=== PATIENT | female | born 1985 | race Hispanic/Latino ===

== ENCOUNTER 2022-12-20 13:39 | Emergency (ER) | payer MEDICAID ==
[~2022-12-20] VITALS: Ht 165.1 cm; Wt 117.9 kg
[2022-12-20] MEDS ORDERED: DEXAMETHASONE SOD PHOSPHATE 4 MG/ML 1ML VIAL IM ONE (14:00)
[2022-12-20] MEDS ORDERED: CELECOXIB 100 MG CAP PO SCH (14:00)
[2022-12-20 14:09] VITALS: BP 121/78
[2022-12-20 15:01] LABS: BASOPHILS % (AUTO) 0.6 % (0.0-5.0); EOSINOPHILS % (AUTO) 1.5 % (0.0-8.0); HEMATOCRIT 39.7 % (36-48); LYMPHOCYTES % (AUTO) 24.8 % (21.0-51.0); MEAN CORPUSCULAR HEMOGLOBIN 26.4 pg (27.0-33.0); MEAN CORPUSCULAR HGB CONC 32.2 g/dL (32.0-36.0); MONOCYTES % (AUTO) 5.6 % (3.0-13.0); NEUTROPHILS % (AUTO) 67.1 % (40.0-77.0); PLATELET COUNT (AUTO) 300 K/uL (130-400); RED BLOOD CELL COUNT(AUTO) 4.84 MIL/uL (4.00-5.50); RED CELL DISTRIBUTION WIDTH 13.4 % (11.0-15.5); WHITE BLOOD COUNT (AUTO) 9.3 K/uL (4.8-10.8)
[2022-12-20 16:06] LABS: ALBUMIN 3.5 g/dL (3.5-5.0); CREATININE 0.9 mg/dL (0.5-1.5); POTASSIUM 3.2 mmol/L (3.5-5.1); TOTAL PROTEIN, SERUM 8.1 g/dL (6.0-8.3)
[2022-12-20] MEDS ORDERED: CELE100C PO (16:18)
== END 2022-12-20 16:23 | disposition home or self-care (01) ==
LOC: EDH 13:39
DX: R51.9 Headache, unspecified (principal); M54.81 Occipital neuralgia; Z98.890 Other specified postprocedural states
CPT/HCPCS: 99285; 70450; 80053; 85025; 81025; 36415; 96372; J1100

== ENCOUNTER 2023-08-21 20:18 | Inpatient (IN) | payer MEDICAID, OTHER ==
[~2023-08-21] VITALS: Ht 165.1 cm; Wt 133.0 kg
[~2023-08-21 20:18] MED LIST: AMOX1TAB16 PO; CELE100C PO; CETI10TA57 PO; DEXA6TAB PO; FLUT1BLS3 IH; SERT-440 PO
[2023-08-21 20:55] LABS: WHITE BLOOD COUNT (AUTO) 4.7 K/uL (4.8-10.8)
[2023-08-21 20:56] LABS: BASOPHILS # (AUTO) 0.02 K/uL (0.00-0.20); BASOPHILS % (AUTO) 0.4 % (0.0-5.0); EOSINOPHILS # (AUTO) 0.08 K/uL (0.00-0.70); EOSINOPHILS % (AUTO) 1.7 % (0.0-8.0); HEMATOCRIT 37.7 % (36-48); IMMATURE GRANULOCYTE ABSOLUTE 0.03 K/uL (0-1); LYMPHOCYTES % (AUTO) 21.4 % (21.0-51.0); MEAN CORPUSCULAR HEMOGLOBIN 26.9 pg (27.0-33.0); MEAN CORPUSCULAR HGB CONC 32.9 g/dL (32.0-36.0); MEAN CORPUSCULAR VOLUME 81.8 fL (79-99); MONOCYTES # (AUTO) 0.4 K/uL (0.1-1.0); MONOCYTES % (AUTO) 9.4 % (3.0-13.0); NEUTROPHILS # (AUTO) 3.1 K/uL (1.8-7.7); NEUTROPHILS % (AUTO) 66.5 % (40.0-77.0); PLATELET COUNT (AUTO) 241 K/uL (130-400); RED BLOOD CELL COUNT(AUTO) 4.61 MIL/uL (4.00-5.50); RED CELL DISTRIBUTION WIDTH 13.7 % (11.0-15.5)
[2023-08-21 21:10] LABS: CREATININE 0.8 mg/dL (0.5-1.5); POTASSIUM 3.7 mmol/L (3.5-5.1)
[2023-08-21 21:14] LABS: ALBUMIN 3.3 g/dL (3.5-5.0); BILIRUBIN,TOTAL 0.2 mg/dL (0.2-1.0); TOTAL PROTEIN, SERUM 7.8 g/dL (6.0-8.3)
[2023-08-21 21:20] LABS: SARS-CoV-2, RNA, NAAT NEGATIVE SARS CoV-2 (NEGATIVE)
[2023-08-21 21:21] LABS: B-TYPE NATRIURETIC PEPTIDE 5 pg/mL (0-100)
[2023-08-21 21:23] LABS: INFLUENZA TYPE B Negative For Type B (NEGATIVE)
[2023-08-21] MEDS ORDERED: GUAIFENESIN 600 MG TABLET.ER PO ONE (21:30)
[2023-08-21] MEDS ORDERED: ALBUTEROL 0.083% 2.5 MG/3 ML INH IH ONE ×3 (21:30)
[2023-08-21] MEDS ORDERED: ENOXAPARIN SODIUM 120 MG/0.8ML SQ ONE (21:30)
[2023-08-21] MEDS ORDERED: DEXAMETHASONE SOD PHOSPHATE 4 MG/ML 1ML VIAL IV ONE (21:30)
[2023-08-21] MEDS ORDERED: SOLU-MEDROL 125MG VIAL IVP ONE (21:30)
[2023-08-21 21:34] VITALS: PULSE 108; RESP 20
[2023-08-21 21:36] LABS: INFLUENZA TYPE A Positive For Type A (NEGATIVE)
[2023-08-21] MEDS: 0.9%NACL 1000ML 1,000 ML IV SCH ×2 (21:36)
[2023-08-21 21:44] LABS: APPEARANCE,URINE CLOUDY (CLEAR); BILIRUBIN,URINE NEGATIVE (NEGATIVE); COLOR,URINE LIGHT-ORANGE (YELLOW); GLUCOSE, URINE (UA) NEGATIVE (NEGATIVE); KETONES,URINE NEGATIVE (NEGATIVE); LEUKOCYTE ESTERASE ,URINE 500 Leu/uL (NEGATIVE); NITRATE,URINE NEGATIVE (NEGATIVE); OCCULT BLOOD,URINE LARGE (NEGATIVE); PROTEIN,URINE 20 mg/dL (NEGATIVE); UROBILINOGEN,URINE 0.2 mg/dL (0.2-1.0)
[2023-08-21 21:48] LABS: ADD UA MICROSCOPIC YES
[2023-08-21 21:49] VITALS: PULSE 119; RESP 20
[2023-08-21 21:54] LABS: BACTERIA,URINE RARE /HPF (None Seen); MUCUS,URINE RARE LPF (None Seen); RBC,URINE >100 /HPF (0-1); SQUAMOUS EPITHELIAL CELL,UR MOD /HPF (0-2); UNCLASSIFIED CRYSTAL 4 /HPF (None Seen); WBC,URINE 26-50 /HPF (0-1)
[2023-08-21 21:55] VITALS: PULSE 122; RESP 20
[2023-08-21] MEDS ORDERED: CEFTRIAXONE 2GM VIAL IVPB ONE (23:30)
[2023-08-22] VITALS (14 sets, daily range): BP systolic 107–133; BP diastolic 63–74; PULSE 72–118; RESP 18–24; O2SAT 95–100
[2023-08-22] MEDS ORDERED: ONDANSETRON 4MG INJ IV PRN (00:30)
[2023-08-22] MEDS ORDERED: CEFTRIAXONE 1G VIAL IVPB SCH (00:30)
[2023-08-22] MEDS: IPRATROPIUM/ALBUTEROL SULFATE 3 ML SOLUTION IH SCH ×6 (01:47→23:24)
[2023-08-22] MEDS ORDERED: IOHEXOL 350 MG/ML 100ML INFUS..BTL IV ONE (03:40)
[2023-08-22 04:00] LABS: BASOPHILS # (AUTO) 0.01 K/uL (0.00-0.20); BASOPHILS % (AUTO) 0.2 % (0.0-5.0); EOSINOPHILS # (AUTO) 0.01 K/uL (0.00-0.70); EOSINOPHILS % (AUTO) 0.2 % (0.0-8.0); HEMATOCRIT 36.2 % (36-48); IMMATURE GRANULOCYTE ABSOLUTE 0.02 K/uL (0-1); LYMPHOCYTES # (AUTO) 0.4 K/uL (1.0-4.8); LYMPHOCYTES % (AUTO) 10.9 % (21.0-51.0); MEAN CORPUSCULAR HEMOGLOBIN 26.7 pg (27.0-33.0); MEAN CORPUSCULAR HGB CONC 31.8 g/dL (32.0-36.0); MEAN CORPUSCULAR VOLUME 84.2 fL (79-99); MONOCYTES # (AUTO) 0.1 K/uL (0.1-1.0); MONOCYTES % (AUTO) 1.7 % (3.0-13.0); NEUTROPHILS # (AUTO) 3.5 K/uL (1.8-7.7); NEUTROPHILS % (AUTO) 86.5 % (40.0-77.0); PLATELET COUNT (AUTO) 227 K/uL (130-400); RED CELL DISTRIBUTION WIDTH 13.8 % (11.0-15.5)
[2023-08-22 04:23] LABS: ALBUMIN 3.2 g/dL (3.5-5.0); BILIRUBIN,TOTAL 0.1 mg/dL (0.2-1.0); MAGNESIUM 1.6 mg/dL (1.80-2.40); POTASSIUM 3.4 mmol/L (3.5-5.1); TOTAL PROTEIN, SERUM 7.2 g/dL (6.0-8.3)
[2023-08-22 05:22] LABS: ABG BASE EXCESS -6.1 mmol/L (-2.0-3.0); ABG HCO3 18.6 mmol/L (21.0-28.0); ABG OXYGEN SATURATION 98.8 % (95.0-99.0); ABG PCO2 35 mmHg (32-45); ABG PH 7.349 (7.350-7.450); DEVICE COMMENT RR RN RAY; PO2, ARTERIAL BG 145.4 mmHg (83.0-108.0); VENT MODE, BG NC (ROOM AIR)
[2023-08-22] MEDS: DOXYCYCLINE 100MG+NS 250ML 250 ML IV SCH ×2 (05:27→16:50)
[2023-08-22] MEDS ORDERED: KCL 20 MEQ ERTAB PO PRN (05:30)
[2023-08-22] MEDS ORDERED: 0.9% NACL 500ML IV.SOLN 500 ML IV SCH (05:30)
[2023-08-22] MEDS ORDERED: MAGNESIUM 2GM PREMIX 50ML 50 ML IV PRN (05:30)
[2023-08-22] MEDS ORDERED: POTASSIUM CHLORIDE 20MEQ/100ML 100 ML IV PRN (05:30)
[2023-08-22] MEDS ORDERED: POTASSIUM CHLORIDE 10% ELIXIR 20 MEQ/15 ML UDCUP PO PRN (05:30)
[2023-08-22] MEDS ORDERED: MAGNESIUM 2GM PREMIX 50ML 50 ML IV SCH (08:30)
[2023-08-22] MEDS: FAMOTIDINE 20MG TAB PO SCH ×2 (08:36→20:26)
[2023-08-22] MEDS: OSELTAMIVIR PHOSPHATE 75 MG CAP PO SCH ×2 (08:36→20:26)
[2023-08-22] MEDS: 0.9%NACL 1000ML 1,000 ML IV SCH ×4 (08:37→19:20)
[2023-08-22] MEDS: ENOXAPARIN SODIUM 40 MG/0.4 ML SYRINGE SQ SCH (08:37)
[2023-08-22] MEDS ORDERED: KCL 20 MEQ ERTAB PO ONE (09:00)
[2023-08-22] MEDS ORDERED: SOLU-MEDROL 40MG VIAL IVP SCH (09:00)
[2023-08-22 09:59] LABS: HEMOGLOBIN A1C 5.2 % (4.0-6.0)
[2023-08-22] MEDS: INSULIN HUMULIN R 100 UNIT/ML 3ML SQ SCH ×3 (11:30→20:27)
[2023-08-22] MEDS: SODIUM BICARBONATE 650 MG TAB PO SCH ×3 (14:48→20:26)
[2023-08-22] MEDS: GUAIFENESIN-DM 200/20 MG 10 ML PO PRN ×2 (14:48→21:57)
[2023-08-22] MEDS: BENZOCAINE/MENTH/CETYLPYRD CL 1 EACH LOZENGE MM PRN ×2 (16:50→21:57)
[2023-08-22 17:02] LABS: RAPID GROUP A STREP negative (NEGATIVE)
[2023-08-22] MEDS: SERTRALINE HCL 50 MG TABLET PO SCH (20:26)
[2023-08-22] MEDS: ACETAMINOPHEN 325 MG TAB PO PRN (21:58)
[2023-08-23] VITALS (15 sets, daily range): BP systolic 100–127; BP diastolic 45–67; PULSE 70–98; RESP 18–24; O2SAT 96–99
[2023-08-23] MEDS: 0.9%NACL 1000ML 1,000 ML IV SCH ×3 (00:37→16:40)
[2023-08-23] MEDS: CEFTRIAXONE 1G VIAL IVPB SCH ×2 (00:37→23:39)
[2023-08-23] MEDS: IPRATROPIUM/ALBUTEROL SULFATE 3 ML SOLUTION IH SCH ×6 (01:46→21:15)
[2023-08-23 04:44] LABS: HEMATOCRIT 36.8 % (36-48); MEAN CORPUSCULAR HEMOGLOBIN 27.4 pg (27.0-33.0); MEAN CORPUSCULAR HGB CONC 32.3 g/dL (32.0-36.0); MEAN CORPUSCULAR VOLUME 84.8 fL (79-99); RED BLOOD CELL COUNT(AUTO) 4.34 MIL/uL (4.00-5.50); RED CELL DISTRIBUTION WIDTH 13.8 % (11.0-15.5); WHITE BLOOD COUNT (AUTO) 6.5 K/uL (4.8-10.8)
[2023-08-23 05:10] LABS: ALBUMIN 3.1 g/dL (3.5-5.0); BILIRUBIN,TOTAL 0.1 mg/dL (0.2-1.0); MAGNESIUM 2.1 mg/dL (1.80-2.40); POTASSIUM 4.6 mmol/L (3.5-5.1); TOTAL PROTEIN, SERUM 7.6 g/dL (6.0-8.3)
[2023-08-23] MEDS: DOXYCYCLINE 100MG+NS 250ML 250 ML IV SCH ×2 (05:28→16:40)
[2023-08-23] MEDS: ACETAMINOPHEN 325 MG TAB PO PRN ×3 (05:51→20:28)
[2023-08-23] MEDS: INSULIN HUMULIN R 100 UNIT/ML 3ML SQ SCH ×4 (06:12→20:29)
[2023-08-23] MEDS: (Fluticasone/Umeclidin/Vilanter (Trelegy Ellipta 100-62.5- IH SCH (09:00)
[2023-08-23] MEDS: ENOXAPARIN SODIUM 40 MG/0.4 ML SYRINGE SQ SCH (09:23)
[2023-08-23] MEDS: SERTRALINE HCL 50 MG TABLET PO SCH ×2 (09:23→20:27)
[2023-08-23] MEDS: SODIUM BICARBONATE 650 MG TAB PO SCH (09:23)
[2023-08-23] MEDS: FAMOTIDINE 20MG TAB PO SCH ×2 (09:23→20:28)
[2023-08-23] MEDS: OSELTAMIVIR PHOSPHATE 75 MG CAP PO SCH ×2 (09:23→20:27)
[2023-08-23] MEDS: GUAIFENESIN-DM 200/20 MG 10 ML PO PRN ×3 (09:32→20:27)
[2023-08-23] MEDS: BENZOCAINE/MENTH/CETYLPYRD CL 1 EACH LOZENGE MM PRN (20:28)
[2023-08-23] MEDS ORDERED: KETOROLAC 15MG/ML VIAL (15MG/ML) ONE (23:36)
[2023-08-24] VITALS (19 sets, daily range): BP systolic 110–144; BP diastolic 55–78; PULSE 67–144; RESP 18–26; O2SAT 87–99
[2023-08-24] MEDS: 0.9%NACL 1000ML 1,000 ML IV SCH ×2 (02:13→22:52)
[2023-08-24] MEDS: IPRATROPIUM/ALBUTEROL SULFATE 3 ML SOLUTION IH SCH ×6 (02:20→22:58)
[2023-08-24] MEDS: DOXYCYCLINE 100MG+NS 250ML 250 ML IV SCH ×2 (03:40→17:54)
[2023-08-24] MEDS: BENZOCAINE/MENTH/CETYLPYRD CL 1 EACH LOZENGE MM PRN ×2 (03:40→20:47)
[2023-08-24] MEDS: GUAIFENESIN-DM 200/20 MG 10 ML PO PRN (03:40)
[2023-08-24] MEDS: INSULIN HUMULIN R 100 UNIT/ML 3ML SQ SCH ×4 (06:05→21:00)
[2023-08-24 06:21] LABS: HEMATOCRIT 35.4 % (36-48); MEAN CORPUSCULAR HEMOGLOBIN 26.6 pg (27.0-33.0); MEAN CORPUSCULAR HGB CONC 31.4 g/dL (32.0-36.0); MEAN CORPUSCULAR VOLUME 84.9 fL (79-99); RED BLOOD CELL COUNT(AUTO) 4.17 MIL/uL (4.00-5.50); RED CELL DISTRIBUTION WIDTH 14.1 % (11.0-15.5); WHITE BLOOD COUNT (AUTO) 4.5 K/uL (4.8-10.8)
[2023-08-24 06:30] LABS: ALBUMIN 2.9 g/dL (3.5-5.0); BILIRUBIN,TOTAL 0.2 mg/dL (0.2-1.0); CREATININE 0.9 mg/dL (0.5-1.5); MAGNESIUM 1.7 mg/dL (1.80-2.40); POTASSIUM 4.1 mmol/L (3.5-5.1); TOTAL PROTEIN, SERUM 6.8 g/dL (6.0-8.3)
[2023-08-24] MEDS: ENOXAPARIN SODIUM 40 MG/0.4 ML SYRINGE SQ SCH (08:24)
[2023-08-24] MEDS: OSELTAMIVIR PHOSPHATE 75 MG CAP PO SCH ×2 (08:24→20:44)
[2023-08-24] MEDS: FAMOTIDINE 20MG TAB PO SCH ×2 (08:25→20:44)
[2023-08-24] MEDS: KETOROLAC 15MG/ML VIAL (15MG/ML) IV PRN ×2 (08:25→21:53)
[2023-08-24] MEDS: SERTRALINE HCL 50 MG TABLET PO SCH ×2 (08:25→20:45)
[2023-08-24] MEDS: (Fluticasone/Umeclidin/Vilanter (Trelegy Ellipta 100-62.5- IH SCH (08:26)
[2023-08-25] VITALS (7 sets, daily range): BP systolic 106–124; BP diastolic 60–76; PULSE 72–90; RESP 18–20; O2SAT 96–98
[2023-08-25] MEDS: CEFTRIAXONE 1G VIAL IVPB SCH (00:33)
[2023-08-25] MEDS: IPRATROPIUM/ALBUTEROL SULFATE 3 ML SOLUTION IH SCH ×4 (02:28→14:50)
[2023-08-25] MEDS: DOXYCYCLINE 100MG+NS 250ML 250 ML IV SCH (05:08)
[2023-08-25 05:43] LABS: BASOPHILS # (AUTO) 0.03 K/uL (0.00-0.20); BASOPHILS % (AUTO) 0.5 % (0.0-5.0); EOSINOPHILS # (AUTO) 0.18 K/uL (0.00-0.70); EOSINOPHILS % (AUTO) 3.3 % (0.0-8.0); HEMATOCRIT 36.9 % (36-48); IMMATURE GRANULOCYTE ABSOLUTE 0.03 K/uL (0-1); LYMPHOCYTES # (AUTO) 2.3 K/uL (1.0-4.8); LYMPHOCYTES % (AUTO) 41.2 % (21.0-51.0); MEAN CORPUSCULAR HEMOGLOBIN 27.2 pg (27.0-33.0); MEAN CORPUSCULAR HGB CONC 31.7 g/dL (32.0-36.0); MEAN CORPUSCULAR VOLUME 85.8 fL (79-99); MONOCYTES # (AUTO) 0.5 K/uL (0.1-1.0); MONOCYTES % (AUTO) 8.2 % (3.0-13.0); NEUTROPHILS # (AUTO) 2.5 K/uL (1.8-7.7); NEUTROPHILS % (AUTO) 46.3 % (40.0-77.0); PLATELET COUNT (AUTO) 244 K/uL (130-400); RED CELL DISTRIBUTION WIDTH 13.7 % (11.0-15.5); WHITE BLOOD COUNT (AUTO) 5.5 K/uL (4.8-10.8)
[2023-08-25] MEDS: INSULIN HUMULIN R 100 UNIT/ML 3ML SQ SCH ×2 (05:48→11:30)
[2023-08-25 06:07] LABS: BAND NEUTROPHILS % (MANUAL) 1 % (0-2); EOSINOPHILS % (MANUAL) 3 % (1-6); LYMPHOCYTES % (MANUAL) 25 % (22-44); MONOCYTES % (MANUAL) 3 % (2-9); SEGMENTED NEUTROPHILS % 68 % (40-70); TOTAL CELLS COUNTED 100
[2023-08-25 06:08] LABS: MAN.DIFF COMMENT-IMPRESSION MANUAL DIFFERENTIAL; PLATELET MORPHOLOGY COMMENT ADEQUATE; WBC MORPHOLOGY CONSISTENT W/DIFF
[2023-08-25 06:17] LABS: BILIRUBIN,TOTAL 0.2 mg/dL (0.2-1.0); CREATININE 0.9 mg/dL (0.5-1.5); MAGNESIUM 2.1 mg/dL (1.80-2.40); POTASSIUM 3.9 mmol/L (3.5-5.1)
[2023-08-25] MEDS: (Fluticasone/Umeclidin/Vilanter (Trelegy Ellipta 100-62.5- IH SCH (09:00)
[2023-08-25] MEDS ORDERED: OSEL75 PO (09:44)
[2023-08-25] MEDS ORDERED: BENZ-39 PO (09:44)
[2023-08-25] MEDS: FAMOTIDINE 20MG TAB PO SCH (10:09)
[2023-08-25] MEDS: OSELTAMIVIR PHOSPHATE 75 MG CAP PO SCH (10:09)
[2023-08-25] MEDS: SERTRALINE HCL 50 MG TABLET PO SCH (10:09)
[2023-08-25] MEDS: ENOXAPARIN SODIUM 40 MG/0.4 ML SYRINGE SQ SCH (10:10)
[2023-08-25] MEDS: ACETAMINOPHEN 325 MG TAB PO PRN (12:33)
[2023-08-25] MEDS ORDERED: IPRA3AMP24 IH (14:46)
[2023-08-25] MEDS ORDERED: FLUT1BLS3 IH (14:46)
== END 2023-08-25 18:54 | disposition home or self-care (01) | DRG 871 ==
LOC: EDH 20:18 → EDHIP 08-22 00:15 → 2AH 08-22 01:57 → 3CH 08-23 12:30
PROVIDERS: ADMIT Internal Medicine; ATTEND Internal Medicine
DX: A41.9 Sepsis, unspecified organism (principal); J10.08 Influenza due to other identified influenza virus with other specified pneumonia; J96.21 Acute and chronic respiratory failure with hypoxia; J12.82 Pneumonia due to coronavirus disease 2019; N39.0 Urinary tract infection, site not specified; E87.20 Acidosis, unspecified; Z68.42 Body mass index [BMI] 45.0-49.9, adult; E66.01 Morbid (severe) obesity due to excess calories; Z20.822 Contact with and (suspected) exposure to COVID-19; E78.00 Pure hypercholesterolemia, unspecified; E87.6 Hypokalemia; G62.9 Polyneuropathy, unspecified; J45.909 Unspecified asthma, uncomplicated; F32.A Depression, unspecified; F41.9 Anxiety disorder, unspecified; Z99.81 Dependence on supplemental oxygen; Z79.899 Other long term (current) drug therapy; Z86.718 Personal history of other venous thrombosis and embolism; Z79.01 Long term (current) use of anticoagulants; Z86.16 Personal history of COVID-19
CPT/HCPCS: 36415; 36600; 71045; 71270; 80053; 80061; 81001; 82803; 82948; 83036; 83605; 83735; 83880; 84145; 84703; 85025; 85027; 85378; 87040; 87088; 87635; 87804; 87807; 87880; 94640; 94664; 94760; G0378; J0696; J1100; J1650; J1885; J2930; J3475; J3490; J7030; Q9967

== ENCOUNTER 2024-03-07 20:21 | Emergency (ER) | payer OTHER ==
[~2024-03-07] VITALS: Ht 165.1 cm; Wt 136.1 kg
[~2024-03-07 20:21] MED LIST changes: +ACET-66 PO; +ALBUHFA IH; -AMOX1TAB16 PO; +BENZ-39 PO; -CELE100C PO; -DEXA6TAB PO; +IBUP-1493 PO; +IPRA3AMP24 IH; +LORA-868 PO; +NIRM1TAB9 PO; +OSEL75 PO
[2024-03-07 21:02] LABS: BASOPHILS # (AUTO) 0.04 K/uL (0.00-0.20); BASOPHILS % (AUTO) 0.4 % (0.0-5.0); EOSINOPHILS # (AUTO) 0.18 K/uL (0.00-0.70); EOSINOPHILS % (AUTO) 1.7 % (0.0-8.0); IMMATURE GRANULOCYTE ABSOLUTE 0.04 K/uL (0-1); LYMPHOCYTES # (AUTO) 2.9 K/uL (1.0-4.8); LYMPHOCYTES % (AUTO) 27.6 % (21.0-51.0); MEAN CORPUSCULAR HEMOGLOBIN 27.3 pg (27.0-33.0); MEAN CORPUSCULAR HGB CONC 34.1 g/dL (32.0-36.0); MEAN CORPUSCULAR VOLUME 79.9 fL (79-99); MONOCYTES # (AUTO) 0.5 K/uL (0.1-1.0); MONOCYTES % (AUTO) 4.9 % (3.0-13.0); NEUTROPHILS # (AUTO) 6.8 K/uL (1.8-7.7); PLATELET COUNT (AUTO) 322 K/uL (130-400); RED BLOOD CELL COUNT(AUTO) 4.88 MIL/uL (4.00-5.50); RED CELL DISTRIBUTION WIDTH 13.2 % (11.0-15.5); WHITE BLOOD COUNT (AUTO) 10.4 K/uL (4.8-10.8)
[2024-03-07 21:13] LABS: MAGNESIUM 1.6 mg/dL (1.80-2.40); POTASSIUM 3.8 mmol/L (3.5-5.1)
[2024-03-07] MEDS: PROCHLORPERAZINE 10MG/2ML INJ IV ONE (21:49)
[2024-03-07] MEDS: DiphenhydrAMINE HCL 50 MG/ML VIAL IV ONE (21:49)
[2024-03-07] MEDS: 0.9%NACL 1000ML 1,000 ML IV ONE (21:49)
[2024-03-08 00:53] VITALS: BP 136/62; PULSE 92; RESP 20; O2SAT 95
[2024-03-08 01:11] LABS: APPEARANCE,URINE CLEAR (CLEAR); BILIRUBIN,URINE NEGATIVE (NEGATIVE); COLOR,URINE LIGHT-YELLOW (YELLOW); GLUCOSE, URINE (UA) NEGATIVE (NEGATIVE); KETONES,URINE NEGATIVE (NEGATIVE); LEUKOCYTE ESTERASE ,URINE NEGATIVE Leu/uL (NEGATIVE); NITRATE,URINE NEGATIVE (NEGATIVE); OCCULT BLOOD,URINE NEGATIVE (NEGATIVE); PH,URINE 5.5 (5.0-8.0); PROTEIN,URINE NEGATIVE (NEGATIVE); UROBILINOGEN,URINE 0.2 mg/dL (0.2-1.0)
[2024-03-08 01:14] LABS: ADD UA MICROSCOPIC NO
[2024-03-08 01:15] LABS: HCG,QUALITATIVE URINE NEGATIVE (NEGATIVE)
[2024-03-08 01:31] LABS: AMPHET/METH SCREEN,URINE NEGATIVE (NEGATIVE); BARBITURATE SCREEN, URINE NEGATIVE (NEGATIVE); BENZODIAZEPINES SCREEN,URINE NEGATIVE (NEGATIVE); CANNABINOID SCREEN,URINE NEGATIVE (NEGATIVE); COCAINE SCREEN,URINE NEGATIVE (NEGATIVE); OPIATE SCREEN,URINE NEGATIVE (NEGATIVE); PHENCYCLIDINE SCREEN,URINE NEGATIVE (NEGATIVE)
[2024-03-08] MEDS: MAGNESIUM OXIDE 400 MG TABLET PO ONE (01:56)
== END 2024-03-08 01:05 | disposition home or self-care (01) ==
LOC: EDH 20:21
DX: E86.0 Dehydration (principal); E83.42 Hypomagnesemia; J84.10 Pulmonary fibrosis, unspecified; Z79.899 Other long term (current) drug therapy; Z98.890 Other specified postprocedural states; Z90.89 Acquired absence of other organs
CPT/HCPCS: 99284; 96374; 71045; 96375; 83735; 80048; 80305; 84703; 85025; 85730; 81025; 36415; 81003; J1200; J7030; J0780